=== PATIENT | male | born 1985 | race Caucasian/White ===

== ENCOUNTER 2017-05-30 13:00 | Emergency (ER) | payer SELFPAY ==
[~2017-05-30] VITALS: Ht 180.3 cm; Wt 75.0 kg
[2017-05-30 13:00] VITALS: BP 144/79; PULSE 84; RESP 15; TEMP 98.2; O2SAT 98
--- NOTE | 2017-05-30 13:16 | PD ---
HPI Chief Complaint: Skin Problem Time Seen by Provider: 13:13 Travel History International Travel<30 days: No Contact w/Intl Traveler<30days: No Traveled to known affect area: No History of Present Illness HPI 31 year old male with history of alcohol dependence presents to the ED for evaluation of a painful and reddened Right foot. Pt states two days ago he was picking [place] [employer] [place] when he sustained a puncture to the top of his foot. Since then the foot has become very swollen, red, and painful. Pain at this time is a 6/10, but exacerbated to a 10/10 with touch or movement. Denies fever but has been chilled. Denies IVDA. Denies any other symptoms at this time. PFSH Past Medical History Medical History: Denies Significant Hx Social History Alcohol Use: Yes Tobacco Use: Yes Substance Use: No Allergies-Medications (Allergen,Severity, Reaction): Coded Allergies: No Known Allergies (Unverified , 05/30/17) Reported Meds & Prescriptions Reported Meds & Active Scripts Active Reported Adderall (Amphetamine-Dextroamphetamine) 30 Mg Tab 30 Mg PO BID Avoid late evening doses. Space doses at least 4 to 6 hours if more than once/day dosing. Review of Systems Except as stated in HPI: all other systems reviewed are Neg Physical Exam Narrative GENERAL: Well nourished male patient in no acute distress SKIN: Warm and dry. There is a 2cm in diameter blister like wound on the dorsum of the right foot just over the 1st MCP joint. The entire right foot is edemetous, warm to touch, taught with hyperemia extending to the ankle. Pt has minimal movement of the toes. Cap refill is WNL.There is another subcentimeter wound on the medial aspect of the right foot adjacent to the dorsal wound. HEAD: Atraumatic. Normocephalic. EYES: Pupils equal and round. No scleral icterus. No injection or drainage. ENT: No nasal bleeding or discharge. Mucous membranes pink and moist. NECK: Trachea midline. No JVD. CARDIOVASCULAR: Regular rate and rhythm. RESPIRATORY: No accessory muscle use. Clear to auscultation. Breath sounds equal bilaterally. GASTROINTESTINAL: Abdomen soft, non-tender, nondistended. Hepatic and splenic margins not palpable. MUSCULOSKELETAL: Extremities without clubbing, cyanosis. Rt foot as described above. No obvious deformities. NEUROLOGICAL: Awake and alert. No obvious cranial nerve deficits. Motor grossly within normal limits. Five out of 5 muscle strength in the arms and legs. Normal speech. PSYCHIATRIC: Appropriate mood and affect; insight and judgment normal. Data Data Last Documented VS Vital Signs Date Time Temp Pulse Resp B/P (MAP) Pulse Ox O2 Delivery O2 Flow Rate FiO2 05/30/17 17:25 05/30/17 13:00 98.2 84 15 98 Orders Orders Iv Access Insert/Monitor (05/30/17 13:15) Complete Blood Count With Diff (05/30/17 13:15) Basic Metabolic Panel (Bmp) (05/30/17 13:15) Foot, Complete (Afx7ydr) (05/30/17 ) Us Soft Tissue (05/30/17 ) Ketorolac Inj (Toradol Inj) (05/30/17 14:30) Vancomycin Inj (Vancomycin Inj) (05/30/17 14:45) Piperacil-Tazo 3.375 Gm Premix (Zosyn 3. (05/30/17 14:45) Sodium Chlor 0.9% 1000 Ml Inj (Ns 1000 M (05/30/17 14:45) Blood Culture (05/30/17 14:43) Wound Culture And Gram Stain (05/30/17 14:43) Labs Laboratory Tests Test 05/30/17 13:40 White Blood Count 15.5 TH/MM3 Red Blood Count 4.63 MIL/MM3 Hemoglobin 13.0 GM/DL Hematocrit 39.4 % Mean Corpuscular Volume 85.2 FL Mean Corpuscular Hemoglobin 28.0 PG Mean Corpuscular Hemoglobin Concent 32.9 % Red Cell Distribution Width 14.6 % Platelet Count 354 TH/MM3 Mean Platelet Volume 8.2 FL Neutrophils (%) (Auto) 80.6 % Lymphocytes (%) (Auto) 12.5 % Monocytes (%) (Auto) 5.5 % Eosinophils (%) (Auto) 0.9 % Basophils (%) (Auto) 0.5 % Neutrophils # (Auto) 12.5 TH/MM3 Lymphocytes # (Auto) 1.9 TH/MM3 Monocytes # (Auto) 0.9 TH/MM3 Eosinophils # (Auto) 0.1 TH/MM3 Basophils # (Auto) 0.1 TH/MM3 CBC Comment DIFF FINAL Differential Comment Blood Urea Nitrogen 13 MG/DL Creatinine 0.83 MG/DL Random Glucose 100 MG/DL Calcium Level 9.1 MG/DL Sodium Level 135 MEQ/L Potassium Level 4.1 MEQ/L Chloride Level 101 MEQ/L Carbon Dioxide Level 25.9 MEQ/L Anion Gap 8 MEQ/L Estimat Glomerular Filtration Rate 110 ML/MIN MDM Medical Decision Making Medical Screen Exam Complete: Yes Emergency Medical Condition: Yes Medical Record Reviewed: Yes Differential Diagnosis abscess vs cellulitis vs tenosynovitis vs sepsis vs osteomyelitis Narrative Course 31 year old male presents to the ED for evaluation of Right foot infection. The patient appears well, VSS, however the right foot appears to have extensive infection in place. Last Impressions Soft Tissue Ultrasound 05/30/17 0000 Signed Impressions: Service Date/Time: May 14:20 - CONCLUSION: 1. Soft tissue edema. 2. A 1.5 x 0.4 cm complex fluid collection in the regional tissues. Daniel Edwards MD Foot X-Ray 05/30/17 0000 Signed Impressions: Service Date/Time: May 13:25 - CONCLUSION: Soft tissue swelling without fracture. John Vick MD Laboratory Tests Test 05/30/17 13:40 White Blood Count 15.5 TH/MM3 Red Blood Count 4.63 MIL/MM3 Hemoglobin 13.0 GM/DL Hematocrit 39.4 % Mean Corpuscular Volume 85.2 FL Mean Corpuscular Hemoglobin 28.0 PG Mean Corpuscular Hemoglobin Concent 32.9 % Red Cell Distribution Width 14.6 % Platelet Count 354 TH/MM3 Mean Platelet Volume 8.2 FL Neutrophils (%) (Auto) 80.6 % Lymphocytes (%) (Auto) 12.5 % Monocytes (%) (Auto) 5.5 % Eosinophils (%) (Auto) 0.9 % Basophils (%) (Auto) 0.5 % Neutrophils # (Auto) 12.5 TH/MM3 Lymphocytes # (Auto) 1.9 TH/MM3 Monocytes # (Auto) 0.9 TH/MM3 Eosinophils # (Auto) 0.1 TH/MM3 Basophils # (Auto) 0.1 TH/MM3 CBC Comment DIFF FINAL Differential Comment Blood Urea Nitrogen 13 MG/DL Creatinine 0.83 MG/DL Random Glucose 100 MG/DL Calcium Level 9.1 MG/DL Sodium Level 135 MEQ/L Potassium Level 4.1 MEQ/L Chloride Level 101 MEQ/L Carbon Dioxide Level 25.9 MEQ/L Anion Gap 8 MEQ/L Estimat Glomerular Filtration Rate 110 ML/MIN Pt has a moderate leukocytosis. There is a collection of fluid on the dorsum of the foot however it's location is concerning as it is directly over the extensor tendon. Following US, there is a small amount of purulent drainage expressed and culture is obtained. I have discussed the patient with my attending who has also assessed the patient. We both agree it is in the patient' s best interest to stay in the hospital for IV abx and podiatry evaluation. A call has been placed to Dr. Sy, podiatry semiconductor wafers tester. Plan is discussed with the patient who is initially onboard, but then decides he does not want to stay with full understanding that the consequences of that choice are not limited to loss of limb, paralysis, worsening infection, and . He does agree to receive his IV abx prior to discharge. We have stressed the importance of getting [place] and he verbalizes understanding. Diagnosis Primary Impression: Cellulitis of right foot Additional Impressions: Abscess of right foot Leukocytosis Qualified Codes: D72.828 - Other elevated white blood cell count Disposition: 07 AGAINST MEDICAL ADVICE Condition: Stable Mary Jones May 30, 2017 13:16
[2017-05-30] MEDS ORDERED: ADDE30TA PO (13:25)
--- NOTE | 2017-05-30 13:41 | RADRPT ---
EXAM DATE/TIME: 05/30/2017 13:25 [facility] COMPARISON: No previous studies available for comparison. INDICATIONS : Pain, swelling, redness with open sore anterior right foot, possible insect bite MEDICAL HISTORY : None. SURGICAL HISTORY : None. ENCOUNTER: Initial ACUITY: 4 - 6 days PAIN SCORE: 10/10 LOCATION: Right Foot FINDINGS: Three view examination of the right foot demonstrates soft tissue swelling without dislocation or fra cture. The tarsal bones appear intact. The interphalangeal and metatarsophalangeal joints are inta ct. The calcaneus is intact. Bony mineralization is normal. CONCLUSION: Soft tissue swelling without fracture. John Vick MD on May 30, 2017 at 13:37 Board Certified Radiologist. This report was verified electronically.
[2017-05-30 13:56] LABS: AUTOMATED NEUTROPHIL # 12.5 TH/MM3 (1.8-7.7); BASOPHIL # 0.1 TH/MM3 (0-0.2); BASOPHIL % 0.5 % (0.0-2.0); EOSINOPHIL # 0.1 TH/MM3 (0-0.4); EOSINOPHIL % 0.9 % (0.0-4.0); HEMATOCRIT 39.4 % (39.0-51.0); HEMO FLAGS DIFF FINAL; LYMPH % 12.5 % (9.0-44.0); LYMPHOCYTE # 1.9 TH/MM3 (1.0-4.8); MEAN CELL VOLUME 85.2 FL (80.0-100.0); MEAN CORPUSCULAR HGB CONC 32.9 % (32.0-36.0); MONO % 5.5 % (0.0-8.0); NEUT % 80.6 % (16.0-70.0); PLATELET COUNT 354 TH/MM3 (150-450); RED BLOOD COUNT 4.63 MIL/MM3 (4.50-5.90); RED CELL DISTRIBUTION WIDTH 14.6 % (11.6-17.2); WHITE BLOOD COUNT 15.5 TH/MM3 (4.0-11.0)
[2017-05-30 14:14] LABS: BICARBONATE 25.9 MEQ/L (21.0-32.0); POTASSIUM 4.1 MEQ/L (3.5-5.1)
[2017-05-30] MEDS ORDERED: KETOROLAC TROMETHAMINE 30 MG/ML (IVP) VIAL IV PUSH ONE (14:30)
--- NOTE | 2017-05-30 14:44 | RADRPT ---
EXAM DATE/TIME: 05/30/2017 14:20 [facility] COMPARISON: FOOT RIGHT COMPLETE ([id number]), May 30, 2017, 13:25. INDICATIONS : Right foot swelling and pain. Possible spider bite. MEDICAL HISTORY : ADHD. Right foot wound. SURGICAL HISTORY : None. ENCOUNTER: Initial ACUITY: 4-6 days PAIN SCORE: 10/10 LOCATION: Right foot. AREA EVALUATED: Right posterior foot. FINDINGS: MASSES: None. FLUID COLLECTIONS: Regional soft tissue swelling in the area of abnormality. Is a 1.5 x 0.4 complex fluid collection in the same general vicinity, along the dorsum of the toe just proximal to the joint. There is some lorie onal hyperemia on Doppler interrogation. OTHER: Negative. CONCLUSION: 1. Soft tissue edema. 2. A 1.5 x 0.4 cm complex fluid collection in the regional tissues. Daniel Edwards MD on May 30, 2017 at 14:37 Board Certified Radiologist. This report was verified electronically.
[2017-05-30] MEDS ORDERED: PIPERACIL-TAZO 3.375 GM PREMIX 50 ML IV ONE (14:45)
[2017-05-30] MEDS ORDERED: VANCOMYCIN INJ 1,000 MG in SODIUM CHLOR 0.9% 250 ML INJ 250 ML IV ONE (14:45)
[2017-05-30] MEDS ORDERED: SODIUM CHLOR 0.9% 1000 ML INJ 1,000 ML IV ONE (14:45)
== END 2017-05-30 17:27 | disposition left against medical advice (07) ==
LOC: NEPD 13:00
DX: L03.115 Cellulitis of right lower limb (principal); M79.89 Other specified soft tissue disorders; B95.0 Streptococcus, group A, as the cause of diseases classified elsewhere; B95.61 Methicillin susceptible Staphylococcus aureus infection as the cause of diseases classified elsewhere; F10.20 Alcohol dependence, uncomplicated; Z72.0 Tobacco use
CPT/HCPCS: 73630; 76999; 80048; 85025; 86403; 87040; 87070; 87186; 96365; 96367; 96375; 99285; J1885; J2543; J3370; J7030; J7050